=== PATIENT | male | born 1960 | race Caucasian/White ===

== ENCOUNTER 2016-06-05 00:09 | Emergency (ER) | payer SELFPAY ==
--- NOTE | 2016-06-05 02:38 | ER ---
ADMIT: 06/05/2016 RM/LOC: ER [facility] MR#: [id number] [address] [address] ROGER C [address] [facility] [place] [address] Emergency Room Report SEX: M AGE: 55 : 1960 DATE: 06/05/2016 HISTORY OF PRESENT ILLNESS: The patient is a 55-year-old male with a past medical history of hypertension, COPD, seizure disorder, came to the ER with increased shortness of breath and increased yellow sputum and also difficulty breathing for 1 day. The patient denies any fever. The patient states he has albuterol nebulized inhaler, which did not work at home. PHYSICAL EXAMINATION: VITAL SIGNS: The patient was tachypneic, was in no fever, O2 saturation was good at room air mid to high 90s. GENERAL: In [id number] respiratory distress because of tachypnea. HEAD and NECK: Noncontributory. LUNGS: The patient had bilateral wheezing in the lungs, without any crackles or extra sounds other than wheezing. HEART: Normal heart sounds. ABDOMEN: Soft. CHEST: The patient also denied any chest pain. EXTREMITIES: The patient had no swelling in lower extremities. The rest of the physical exam is noncontributory. With the working diagnosis of acute COPD exacerbation, the patient received Decadron IM and received multiple breathing treatments. The patient was reexamined, the wheezing substantially resolved. The patient states he feels way better and has normal O2 sat during ambulation. The patient was stable to be discharged to home with prednisone for 5 days, and Levaquin for 5 days and follow up with the primary doctor as needed. Kenneth Orozco MD/ [facility] JOB #: [id number] CC: Kenneth Orozco MD, Attending Physician Rodney Dumont MD, Family Physician
== END 2016-06-05 01:15 | disposition home or self-care (01) ==
LOC: ER 00:09
DX: J44.1 Chronic obstructive pulmonary disease with (acute) exacerbation (principal); I10 Essential (primary) hypertension; F17.210 Nicotine dependence, cigarettes, uncomplicated; Z88.5 Allergy status to narcotic agent; Z79.899 Other long term (current) drug therapy

== ENCOUNTER 2016-09-26 17:22 | Emergency (ER) | payer SELFPAY ==
--- NOTE | 2016-10-24 19:42 | ER ---
ADMIT: 09/26/2016 RM/LOC: ER [facility] MR#: [id number] [address] [address] ROGER MALDONADO [address] [facility] [place] [address] Emergency Room Report SEX: M AGE: 55 : 1960 DATE: 09/26/2016 This patient comes to the ER for having dental pain. He has had it for the last week and states it has become very severe that he has very severe dental decay throughout his mouth. The tooth that is giving him the most problem is tooth #11. I did a dental block, which did relieve the patient's pain. I wrote a prescription for amoxicillin and tramadol and he is to follow up with a dentist. Please see my T-sheet. SHAUNA Joyce / Pb Pierre MD / [employer] JOB #: [id number] CC: Pb Pierre MD, Attending Physician [facility], Family Physician
== END 2016-09-26 18:20 | disposition home or self-care (01) ==
LOC: ER 17:22
PROC: 3E0T3BZ Introduction of Anesthetic Agent into Peripheral Nerves and Plexi, Percutaneous Approach (ICD-10-PCS; principal; 2016-09-26)
DX: K02.9 Dental caries, unspecified (principal); I10 Essential (primary) hypertension; Z87.891 Personal history of nicotine dependence; Z90.89 Acquired absence of other organs; Z88.6 Allergy status to analgesic agent